=== PATIENT | male | born 1990 | race Two or more races ===

== ENCOUNTER 2018-08-03 11:23 | Emergency (ER) | payer MEDICAID ==
[~2018-08-03] VITALS: Ht 162.6 cm; Wt 53.5 kg
[2018-08-03 11:39] VITALS: BP 128/72
[2018-08-03] MEDS ORDERED: POLYETHYLENE GLYCOL 3350 17 GM POWD.PACK PO ONE (12:00)
== END 2018-08-03 13:29 | disposition home or self-care (01) ==
LOC: ER 11:26
DX: K59.00 Constipation, unspecified (principal); Z59.0 Homelessness; Z88.0 Allergy status to penicillin